=== PATIENT | female | born 1995 | race Two or more races ===

== ENCOUNTER 2021-09-30 14:09 | Emergency (ER) | payer MEDICAID ==
[2021-09-30 14:21] VITALS: BP 118/83
[2021-09-30 15:09] LABS: Basophils # (auto) 0 10 ^3/uL (0-0.2); Basophils % (auto) 0.8 % (0.0-2.0); Eosinophils # (auto) 0 10 ^3/uL (0-0.8); Eosinophils % (auto) 0.2 % (0.0-7.0); Hematocrit 40.8 % (36.0-46.0); Hemoglobin 13.3 g/dL (12.2-16.2); Lymphocytes # (auto) 1.3 10 ^3/uL (0.4-5.4); Mean Corpuscular Hemoglobin 29.6 pg (28.0-32.0); Mean Corpuscular Hgb Conc. 32.5 g/dL (32.0-36.0); Mean Corpuscular Volume 91.2 fL (80.0-100.0); Monocytes # (auto) 0.4 10 ^3/uL (0-1.3); Monocytes % (auto) 12.4 % (0.0-12.0); Neutrophils # (auto) 1.2 10 ^3/uL (1.6-8.6); Neutrophils % (auto) 40.6 % (37.0-80.0); Nucleated Red Blood Cells % 0.1 %; Red Blood Cells 4.48 10^6/uL (4.0-5.20); Red Cell Distribution Width 13.4 % (11.8-14.3); White Blood Cell 2.9 10^3/uL (4.4-10.8)
[2021-09-30 15:13] LABS: Urine Bacteria MANY /hpf (None Seen); Urine Blood Negative /uL (Negative); Urine Specific Gravity 1.015 (1.001-1.035); Urine WBC 25 /hpf (0 - 5)
[2021-09-30 15:40] LABS: Albumin 3.8 g/dL (3.4-5.0); Calcium 8.6 mg/dL (8.5-10.1)
[2021-09-30 15:43] LABS: Bilirubin, Total 0.2 mg/dL (0.2-1.0); Total Protein 7.2 g/dL (6.4-8.2)
[2021-09-30] MEDS: cefTRIAXone 1GM/50ML D5W 50 ML IV ONE (15:45)
[2021-09-30] MEDS ORDERED: NITR-87 PO (15:46)
[2021-09-30] MEDS: cefTRIAXone SOD 1,000 MG VL IM ONE (16:48)
== END 2021-09-30 16:48 | disposition home or self-care (01) ==
LOC: ER 14:09
DX: N39.0 Urinary tract infection, site not specified (principal); F15.10 Other stimulant abuse, uncomplicated; Z32.02 Encounter for pregnancy test, result negative
CPT/HCPCS: 36415; 80053; 81001; 81025; 85025; 87086; 87088; 87186; 96372; 99283; J0696

== ENCOUNTER 2022-01-29 13:29 | Emergency (ER) | payer MEDICAID ==
[~2022-01-29] VITALS: Ht 182.9 cm; Wt 91.7 kg
[~2022-01-29 13:29] MED LIST: NITR-87 PO
[2022-01-29 14:33] LABS: Urine Bacteria NONE SEEN /hpf (None Seen); Urine Blood TRACE /uL (Negative); Urine WBC 1 /hpf (0 - 5)
[2022-01-29 15:49] VITALS: BP 126/74
[2022-01-29] MEDS ORDERED: NITR-87 PO (16:23)
[2022-01-29] MEDS ORDERED: PROM1SOL4 PO (16:23)
== END 2022-01-29 16:30 | disposition home or self-care (01) ==
LOC: ER 13:29
DX: N39.0 Urinary tract infection, site not specified (principal); F15.10 Other stimulant abuse, uncomplicated; Z87.442 Personal history of urinary calculi
CPT/HCPCS: 81001

== ENCOUNTER 2022-06-02 17:55 | Emergency (ER) | payer MEDICAID, OTHER ==
[~2022-06-02] VITALS: Ht 182.9 cm; Wt 95.0 kg
[~2022-06-02 17:55] MED LIST changes: +PROM1SOL4 PO
[2022-06-02 18:06] VITALS: BP 132/71
[2022-06-02] MEDS ORDERED: ONDANSETRON ODT 4 MG TAB PO ONE (19:45)
[2022-06-02] MEDS ORDERED: ACETAMINOPHEN 325 MG TAB PO ONE (20:15)
[2022-06-02] MEDS ORDERED: ACET-1158 PO (20:23)
== END 2022-06-02 20:30 | disposition home or self-care (01) ==
LOC: ER 17:55
DX: S61.301A Unspecified open wound of left index finger with damage to nail, initial encounter (principal); Z87.442 Personal history of urinary calculi; W26.0XXA Contact with knife, initial encounter; Y93.89 Activity, other specified; Y92.89 Other specified places as the place of occurrence of the external cause; Y99.8 Other external cause status
CPT/HCPCS: 99283; Q0162